=== PATIENT | male | born 1985 | race Caucasian/White ===

== ENCOUNTER 2018-03-20 14:07 | Emergency (ER) | payer OTHER ==
--- NOTE | 2018-03-20 14:19 | CPEKG ---
Heart Rate: 89 RR Interval: 674 P-R Interval: 168 QRSD Interval: 92 QT Interval: 368 QTC Interval: 448 P [place]: 78 QRS [place]: 55 T Wave [place]: 29 EKG Severity - ABNORMAL ECG - EKG Impression: SINUS RHYTHM EKG Impression: RIGHT ATRIAL ABNORMALITY Electronically Signed By: Eber Carias 20-Mar-2018 14:24:17
[2018-03-20] MEDS ORDERED: NS 1,000 ML IV ONE (14:22)
--- NOTE | 2018-03-20 14:24 | EDPHY ---
H & P Stated Complaint: Palpitations Time Seen by Provider: 03/20/18 14:18 HPI/ROS: CHIEF COMPLAINT: Palpitations HISTORY OF PRESENT ILLNESS: Patient is a 32-year-old healthy man who complains of palpitations about hr ago that resolved spontaneously. He had some more about 30 min ago and decided to drive to the ER. No chest pain. He did experience some slight shortness of breath along with them. No fevers. No cough no recent illness. No vomiting. No diaphoresis. No history of anxiety. No stimulant use, no significant caffeine use. REVIEW OF SYSTEMS: Constitutional: denies: chills, fever, recent illness, recent injury EENTM: denies: blurred vision, double vision, nose congestion Respiratory: denies: cough, shortness of breath Cardiac: See HPI denies: chest pain, Gastrointestinal/Abdominal: denies: abdominal pain, diarrhea, nausea, vomiting, blood streaked stools Genitourinary: denies: dysuria, frequency, hematuria, pain Musculoskeletal: denies: joint pain, muscle pain Skin: denies: lesions, rash, jaundice, bruising Neurological: denies: headache, numbness, paresthesia, tingling, dizziness, weakness Hematologic/Lymphatic: denies: blood clots, easy bleeding, easy bruising Immunologic/allergic: denies: HIV/AIDS, transplant EXAM: GENERAL: Well-appearing, well-nourished and in no acute distress. HEAD: Atraumatic, normocephalic. EYES: Pupils equal round and reactive to light, extraocular movements intact, sclera anicteric, conjunctiva are normal. ENT: TMs normal, nares patent, oropharynx clear without exudates. Moist mucous membranes. NECK: Normal range of motion, supple without lymphadenopathy or JVD. LUNGS: Breath sounds clear to auscultation bilaterally and equal. No wheezes rales or rhonchi. HEART: Regular rate and rhythm without murmurs, rubs or gallops. ABDOMEN: Soft, nontender, normoactive bowel sounds. No guarding, no rebound. No masses appreciated. BACK: No CVA tenderness, no spinal tenderness, step-offs or deformities EXTREMITIES: Normal range of motion, no pitting or edema. No clubbing or cyanosis. NEUROLOGICAL: Cranial nerves II through XII grossly intact. Normal speech, normal gait. 5/5 strength, normal movement in all extremities, normal sensation PSYCH: Normal mood, normal affect. SKIN: Warm, dry, normal turgor, no visible rashes or lesions. Source: Patient Exam Limitations: No limitations - Personal History Current Tetanus Diphtheria and Acellular Pertussis (TDAP): Yes - Medical/Surgical History Hx Asthma: No Hx Chronic Respiratory Disease: No Hx Diabetes: No Hx Cardiac Disease: No Hx Renal Disease: No Hx Cirrhosis: No Hx Alcoholism: No Hx HIV/AIDS: No Hx Splenectomy or Spleen Trauma: No Other PMH: T9-T10 FX - Family History Significant Family History: No pertinent family hx - Social History Smoking Status: Never smoked Alcohol Use: None Constitutional: Initial Vital Signs Temperature (C) 36.7 C 03/20/18 14:08 Heart Rate 86 03/20/18 14:08 Respiratory Rate 20 03/20/18 14:08 Blood Pressure 142/94 H 03/20/18 14:08 O2 Sat (%) 96 03/20/18 14:08 O2 Delivery Mode Room Air Allergies/Adverse Reactions: cefaclor [From Ceclor] Allergy (Severe, Verified 06/11/14 08:05) Hives Home Medications: Medication Instructions Recorded No Medications [No Meds] 10/18/13 Amox Tr/K Clav (Augmentin) 500 mg PO Q8 #30 tab 06/11/14 [Augmentin 500/125 MG TAB (*)] Ciprofloxacin/Dexamethasone 4 drops OTIC BID #1 bottle 06/11/14 [Ciprodex] Hydrocodone/APAP 5/325 [[place] 1 - 2 tab PO Q4PRN PRN #15 tab 06/11/14 5/325 (*)] Medical Decision Making - Diagnostics EKG Interpretation: An EKG obtained and was read and documented in trace view. Please see trace view for full reading and report. Sinus rhythm, no acute ischemic changes ED Course/Re-evaluation: The patient is feeling completely better. We discussed his lab and EKG results. He thinks that there may have been some anxiety involved. He declines further workup or observation at this time. I will follow up from follow up with his primary the and possibly for Holter monitoring. He understands and agrees with this plan. Differential Diagnosis: Partial list of the Differential diagnosis considered include but were not limited to; palpitations, arrhythmia, anxiety and although unlikely based on the history and physical exam, I also considered stimulant abuse, dehydration. I discussed these differential diagnoses and the plan with the patient as well as the usual and expected course. The patient understands that the diagnosis is provisional and that in medicine we are not always correct and that further workup is often warranted. Usual and customary warnings were given. All of the patient's questions were answered. The patient was instructed to return to the emergency department should the symptoms at all worsen or return, otherwise to followup with the physician as we discussed. - Data Points Laboratory Results: Laboratory Results 03/20/18 14:25 03/20/18 14:25 Medications Given: Discontinued Medications Sodium Chloride (Ns) 1,000 mls @ 0 mls/hr IV EDNOW ONE; Wide Open PRN Reason: Protocol Stop: 03/20/18 14:23 Last Admin: 03/20/18 14:29 Dose: 1,000 mls Departure - Departure Disposition: Home, Routine, Self-Care Clinical Impression: Palpitations Condition: Good Instructions: Heart Palpitations (ED) Referrals: NONE *PRIMARY CARE P,. [Primary Care Provider] - As per Instructions Jamie Jarrett MD [[facility] Primary Care Provider] - As per Instructions
[2018-03-20 14:31] LABS: PLATELET COUNT 235 10^3/uL (150-400)
[2018-03-20 15:12] VITALS: BP 117/76
== END 2018-03-20 15:12 | disposition home or self-care (01) ==
DX: R00.2 Palpitations (principal); E86.9 Volume depletion, unspecified

== ENCOUNTER 2018-10-18 11:52 | Observation (INO) | payer OTHER ==
--- NOTE | 2018-10-17 21:56 | PDGENHP ---
History and Physical - Chief Complaint RIGHT HIP PAIN - History of Present Illness 1. Bilateral~Femoroacetabular impingement (AMEENA) Mixed type,~with~resultant labral tear 2.~~~Bilateral lower extremity radicular symptoms 3.~~~History of T9-10 fracture ~ HISTORY OF PRESENT ILLNESS: Donis a 32 y.o.~active male~who I have had the pleasure to consult on today. 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 ~Don enjoys cycling, nordic skiing, running, and swimming. Francisco's~bilateral~hip pain~started 2013;~9 months after a skiing accident with fractures of T9-T-10. Nerve pain in feet, and lower lumbar spine pain. Presentation today is of~anterior, posterior, lateral~bilateral~hip pain. ~The hip~does not~wake him~at night and does~click and catch on him. Sitting~can be uncomfortable~for him.~Dondoes~report suffering from lower back pain episodes, he has bilateral lower radicular symptoms, mostly in his feet, which is the biggest source of his pain right now. Donhas~participated in physical therapy (for several months)~and has~tried other conservative measures including~cortisone~hip injection~(Right Hip 80% immediate relief, 1 month of sustained relief; Left diagnostic injection, 0% relief)~, dry needling and massage therapy.~He~has not~received sufficient symptomatic improvement. Donhas~utilized medication for pain management, including NSAID.~Donhas used medication since the pain began. Donunderstands that he~has a hip and pelvis problem which should be researched and wishes to get a better understanding of his~hip status, followed by an establishment of a treatment strategy, hoping he~would be able to get back to his~well being active life. History: Past medical history:~~ None which is relevant~ Relevant familial history:~None which is relevant~ Past surgical history:~ None Donhas never received general anesthesia. I have reviewed, verified and agree with the past medical, surgical, family and social history. Current Medications:~has a current medication list which includes the following prescription(s): ibuprofen. ALLERGIES:~is allergic to ceclor [cefaclor]. Objective: Physical Examination: Donis 6~feet 1~inches tall and weighs 163~Lbs. Donis AAO x3; jaimie~is well- nourished, in NAD. Skin is warm and dry. ~Breathing is non-labored. ~CV with RRR by pulse. Abdomen is soft, NTND. Currently,~he~walks with a normal~gait. Trendelenburg sign is~negative~and proprioception is normal,~both~sides. He~presents with mild~signs of joint laxity. Beightons Score:~2 (knees) Lower spine examination is~positive~for sciatic with SLR.~Range of motion of the spine is normal~for flexion, extension, and rotations, with~associated lumbar back~pain. Strength, Sensation and pulses are~normal -~bilaterally Ankles and knees exams are~normal~and no~mal-alignment is evident. He~has~right~1~cm short leg length discrepancy. Thigh circumference is~symmetric~with no evidence for muscle atrophy~on both~ sides. Hip ROM (degrees): FL ER At 90~hip FL IR At 90~hip FL AB AD EX IR Neutral hip ER Neutral hip R 105 45 10 30 5 5 40 40 L 105 40 10 30 5 5 45 30 Specific hip and pelvis tests: Impingement Test DANG Roll Add. Longus R +++ +++ Negative Negative L +++ +++ Negative Negative Glut. Med ITB R Negative 5/5 strength Negative 5/5 strength L Negative 5/5 strength Negative 5/5 strength Squeeze test measured~normal Bony Symphysis pubis is~pain free~to touch while concentric activity of the rectus abdominis, does not~produce pain at its insertion. Posterior joint: left hip Ilio Psos specific tests~unable to assess due to back pain. Greater trochanteric burse is~painful~on both hips. Piriformis tests: FAIR is~positive,~with~local signs of neuritis related to sciatic nerve. RIGHT HIP SIJs examination is~normal~with normal~DANG in relation and local tenderness. Hamstrings tests are~negative~functional contraction and negative~tendinopathy both hips. On a daily basis, the following percentages reflectArtemio's overall total pain: Deep hip:~90% GT:~10% Imaging: Radiology studies which I have personally reviewed, analyzed and measured are below: XR: AP of the hip and pelvis: Performed in a~suboptimal~technique Coccyx~is at the level of the~pubic symphysis Standing [place] Lines are~preserved. Minimal~Pathological signs are seen in the Symphysis Pubis. Minimal~Pathological signs are seen at the Ischial tuberosity. ~ Specific measurements show: NSA~ LCE Sourcil~Angle Sharp's angle Lat. Cam Lat. Pincer C.Over~sign Head~Coverage % ATDmm R N 46 -4 37 + + - N N L N 44 -6 47 + + - N N Pos. wall sign ISS NAD ~~Dysplasia Comments R Negative Negative 12.4~mm Negative L Negative Negative 14.4~mm Negative Sclerosis Sup. Lat. OA Cysts Joint Space-WBZ Joint Space-Medial R Negative Negative Negative 3.9~mm 5.0~mm L Negative Negative Negative 4.2~mm 3.9~mm X Table lateral: Anterior cam lesion is~seen~on both hips. Alpha Angle: ~ Right~69~dergrees Left~65~degrees Impression and plan: Rosie Ochoais a 32 y.o.~active male~suffering from symptomatic Bilateral~hip pain due to Femoroacetabular impingement (AMEENA)~Mixed type,~with~resultant labral tear ~causing significant disability to him~and altering his~sport and life activities. Physical examination, imaging, and~his~story correspond with the diagnosis mentioned above. I explained that femoroacetabular impingement (AMEENA) arises due to a bony or soft tissue conflict between the femur (ball) and acetabulum (socket) caused by an abnormality in the shape of the hip joint. Over time, repetitive impingement can result in damage to the labrum and adjacent surface cartilage within the socket, ultimately giving rise to progressive osteoarthritis of the hip. I explained that although a labral tear can be a source of pain, it is rarely the root of the problem and typically occurs secondary to an underlying abnormality in the shape and mechanics of the hip joint. ~ I reviewed conservative treatment options for AMEENA including activity modification to avoid positions of impingement, physical therapy, non-steroidal anti-inflammatory medications, and various injections (corticosteroid and PRP) aimed at reducing inflammation in the hip joint or/and preventing dynamic impingement. PRP injections may promote healing and reduce symptoms in certain cases but it will not repair chronically damaged tissue. Although these measures may help to buy time and reduce current level of symptoms, they are not a definitive solution to the problem given the underlying abnormality in the shape of the hip joint. Patients who have failed conservative management and continue to experience symptoms are candidates for hip arthroscopy, a minimally invasive surgery that can definitively address the underlying problem. Hip arthroscopy typically includes treating the labrum with either repair or reconstruction of the torn labrum; as well as addressing the underlying abnormalities by restoring the normal shape to the hip joint. ~If the cartilage is damaged a Microfracture surgical procedure may also be necessary to help stimulate the growth of fibrocartilage. ~If a patient requires a labral reconstruction or a Microfracture, the initial rehabilitation from the surgery may take longer, but the long-term results are typically favorable. I reviewed the technical aspects of hip arthroscopy including risks, benefits, and expected course of recovery.~Francisco~understands that hip arthroscopy is a minimally invasive outpatient procedure carried out through small incisions on the outer aspect of the hip joint. During surgery, the labral tear will be identified and either repaired or reconstructed~using bone anchors and suture material. Additionally, any excessive bone will be removed with a high-speed phong to reshape the hip joint and restore normal anatomy. Risks include infection, bleeding, injury to nearby nerves or vessels, stiffness, persistent pain, instability, venous thromboembolic disease, and traction related complications including temporary foot numbness. Rarely, revision surgery may be required to address these problems. Overall recovery takes approximately 4~ 8~months depending on the extent of damage and degree of repair. In the event that the labral tissue quality is inadequate for successful repair and healing,~Francisco~understands that a labral reconstruction will be performed. This procedure entails placing a cadaver tissue graft within the hip joint and stabilizing it with bone anchors to build a new labrum. The overall recovery time for labral reconstruction is similar to that of labral repair, although the surgical procedure takes longer to perform. Since he reports that about 80% of his pain originates from his feet, we would like to have him address this issue prior to having hip arthroscopy. ~He will follow up with Dr. Landry. Donwill review the info presented. We will order a CT scan if and when Francisco decides to move forward with surgical intervention. Francisco~will contact us if he~wishes to pursue further treatment in the future. Donis happy with this plan. I have also supplied~him~with handouts, outlining the expected surgical treatment and rehab involved. I wish~Donall the best, ~~ Marko Ewing, PAC History Information - Allergies/Home Medication List Allergies/Adverse Reactions: cefaclor [From Ceclor] Allergy (Severe, Verified 06/11/14 08:05) Hives Home Medications: Herbals/Supplements -Info Only DAILY 10/08/18 [Last Taken Unknown] Ibuprofen DAILY 10/08/18 [Last Taken Unknown] I have personally reviewed and updated: medical history - Social History Smoking Status: Never smoked Review of Systems Review of Systems: Physical Exam Physical Exam:
[~2018-10-18 11:52] MED LIST: BUPIVACAINE/EPI 0.25% 30 ML SDV ONE; EPINEPHrine 30 MG/30 ML MDV (0.1 MG/0.1 ML) ONE; VANCOMYCIN 1.25 GM in NS 250 ML IV ONE; VANCOMYCIN PHARMACY TO DOSE MISC ONE
[2018-10-18] MEDS ORDERED: LR 1,000 ML IV ONE (12:50)
[2018-10-18] MEDS ORDERED: LIDOCAINE 1% 2 ML INJ ID PRN (12:50)
[2018-10-18] MEDS ORDERED: PREGABALIN 150 MG CAP PO ONE (12:50)
[2018-10-18] MEDS ORDERED: ACETAMINOPHEN 500 MG TAB PO ONE (12:50)
[2018-10-18] MEDS ORDERED: CLINDAMYCIN 900 MG/DEXTROSE 50 ML IV ONE (15:29)
--- NOTE | 2018-10-18 15:29 | PDANEPAE ---
ANE History of Present Illness right hip dysplasia here for right hip scope ANE Past Medical History - Cardiovascular History Hx Hypertension: No Hx Arrhythmias: No Hx Chest Pain: No Hx Coronary Artery / Peripheral Vascular Disease: No Hx CHF / Valvular Disease: No Hx Palpitations: Yes Cardiovascular History Comment: 03/2018 RELATED TO ANXIETY - Pulmonary History Hx COPD: No Hx Asthma/Reactive Airway Disease: No Hx Recent Upper Respiratory Infection: No Hx Oxygen in Use at Home: No Hx Sleep Apnea: No Sleep Apnea Screening Result - Last Documented: Negative - Neurologic History Hx Cerebrovascular Accident: No Hx Seizures: No Hx Dementia: No - Endocrine History Hx Diabetes: No - Renal History Hx Renal Disorders: No - Liver History Hx Hepatic Disorders: No - Neurological & Psychiatric Hx Hx Neurological and Psychiatric Disorders: No - Cancer History Hx Cancer: No - Congenital Disorder History Hx Congenital Disorders: No - GI History Hx Gastrointestinal Disorders: No - Other Health History Other Health History: HAS TORN RT LABRUM. ACETABULAR IMPINGEMENT - Chronic Pain History Chronic Pain: Yes (RT HIP) - Surgical History Prior Surgeries: COLONOSCOPY. T&T ANE Review of Systems Review of Systems: - Exercise capacity METS (RN): 5 METS ANE Patient History - Allergies Allergies/Adverse Reactions: cefaclor [From Ceclor] Allergy (Severe, Verified 06/11/14 08:05) Hives vancomycin Allergy (Verified 10/18/18 15:01) Flushing & Hives - Home Medications Home Medications: Herbals/Supplements -Info Only DAILY 10/08/18 [Last Taken 10/11/18] Ibuprofen DAILY 10/08/18 [Last Taken 09/27/18] [place]-3 10/18/18 [Last Taken 10/11/18] - NPO status NPO Since - Liquids (Date): 10/18/18 NPO Since - Liquids (Time): 10:00 NPO Since - Solids (Date): 10/17/18 NPO Since - Solids (Time): 21:00 - Smoking Hx Smoking Status: Never smoked - Family Anes Hx Family Hx Anesthesia Complications: NEG ANE Labs/Vital Signs - Vital Signs Blood Pressure: 133/82 Heart Rate: 67 Respiratory Rate: 20 O2 Sat (%): 97 Height: 185.42 cm Weight: 76.657 kg ANE Physical Exam - Airway Neck exam: FROM Mallampati Score: Class 1 Mouth exam: normal dental/mouth exam - Pulmonary Pulmonary: no respiratory distress - Cardiovascular Cardiovascular: regular rate and rhythym - ASA Status ASA Status: II ANE Anesthesia Plan Anesthesia Plan: general endotracheal anesthesia (Called to pre-op to evaluate a rash and hives and facial flushing from vancomycin infusion. turned off for 10 min, improved. Re-started at 1/2 rate and reaction worsened for 30 min. Infusion stopped. Called pharmacy and ok to use clindamycin. Lengthly discussion with family and patient and decision to proceed made with new antibiotic) Total IV Anesthesia: No
[2018-10-18] MEDS ORDERED: MIDAZOLAM 2 MG/2 ML VIAL IVP ONE (15:30)
[2018-10-18] MEDS ORDERED: ROCURONIUM 50 MG/5 ML VIAL ONE (15:36)
[2018-10-18] MEDS ORDERED: LIDOCAINE 2% 5 ML SDV ONE (15:36)
[2018-10-18] MEDS ORDERED: LIDOCAINE HCL 160 MG/4 ML LTA KIT TP ONE (15:37)
[2018-10-18] MEDS ORDERED: PROPOFOL 200 MG/20 ML VIAL ONE (15:37)
[2018-10-18] MEDS ORDERED: fentaNYL 100 MCG/2 ML INJ ONE ×3 (15:37→20:14)
[2018-10-18] MEDS ORDERED: ONDANSETRON 4 MG/2 ML VIAL ONE (19:38)
--- NOTE | 2018-10-18 19:52 | POSTOPPROG ---
Post Op Note Date of Operation: 10/18/18 Surgeon: Luis Manuel Dudley Homebound Teacher: Deena Evangelista Anesthesia: GET(General Endotracheal) Pre-op Diagnosis: R hip AMEENA mixed type Post-op Diagnosis: Same Procedure: R hip scope, labral repair, cam/pincer resection, capsular repair Inf/Abcess present in the surg proc area at time of surgery?: No EBL: Minimal
[2018-10-18] MEDS ORDERED: ONDANSETRON 4 MG/2 ML VIAL IVP PRN ×2 (19:53→22:25)
[2018-10-18] MEDS ORDERED: NALOXONE HCL 0.4 MG/ML INJ IVP PRN (19:53)
[2018-10-18] MEDS ORDERED: oxyCODONE IR 5 MG TAB PO PRN ×2 (19:53→22:25)
[2018-10-18] MEDS ORDERED: PROMETHAZINE HCL 25 MG/ML INJ IVP PRN ×2 (19:53→22:25)
[2018-10-18] MEDS ORDERED: ACETAMINOPHEN 500 MG TAB PO PRN (19:53)
[2018-10-18] MEDS ORDERED: DIAZEPAM 5 MG/ML 1 ML SYR IVP PRN (19:53)
[2018-10-18] MEDS ORDERED: HYDROCODONE/APAP 5/325 TAB PO PRN (19:53)
--- NOTE | 2018-10-18 19:55 | POSTANESTH ---
Post Anesthetic Evaluation Cardiovascular Status: Normal, Stable, Similar to Pre-Op Cond Respiratory Status: Similar to Pre-op Cond., Requires Airway Assist Level of Consciousness/Mental Status: Mildly Sleepy, Arousable, Moderately Sleepy Pain Control: Adequate, Prn Tx Ordered Nausea/Vomiting Control: Adequate, Prn Tx Ordered Complications Possibly Related to Anesthesia: None Noted
[2018-10-18] MEDS ORDERED: MEPERIDINE 25 MG/0.5 ML AMP IVP PRN (20:02)
[2018-10-18] MEDS ORDERED: MEPERIDINE 25 MG/0.5 ML AMP ONE (20:03)
[2018-10-18] MEDS ORDERED: HYDROmorphONE/DILAUDID 2 MG/ML INJ ONE (20:14)
[2018-10-18] MEDS: HYDROmorphONE/DILAUDID 2 MG/ML INJ IVP PRN ×2 (20:17→20:55)
[2018-10-18] MEDS: fentaNYL 100 MCG/2 ML INJ IVP PRN ×2 (20:17→20:54)
[2018-10-18] MEDS ORDERED: oxyCODONE IR 5 MG TAB ONE (21:04)
[2018-10-18] MEDS ORDERED: ACETAMINOPHEN 500 MG TAB ONE (21:04)
[2018-10-18] MEDS ORDERED: ONDANSETRON DISINTEGRATING 4 MG TAB PO PRN (22:25)
[2018-10-18] MEDS ORDERED: HYDROmorphONE/DILAUDID 1 MG/ML INJ IVP PRN (22:25)
[2018-10-19 08:07] VITALS: BP 107/62
--- NOTE | 2018-10-19 08:41 | ASMTLACE ---
LACE Length of stay for Answers: Less than 1 day current admission Comorbidities - select Answers: Opioid dependence all that apply / Chronic pain # of Emergency department Answers: 0 visits in the last 6 months Social determinants Answers: Mental health diagnosis (anxiety, depression, pers onality disorders, etc.) Score: 7 Date Signed: 10/19/2018 08:41 AM Electronically Signed By:Edelmira Crandall RN
--- NOTE | 2018-10-19 08:45 | ASMTCMCOM ---
CM Note CM Note Notes: Patient chart reviewed. Patient underwent hip arthroscopic surgery yesterday and is now medically cleared for discharge to home. No needs identified. CM available should needs arise. Plan: DC to home independently. Date Signed: 10/19/2018 08:45 AM Electronically Signed By:Edelmira Crandall RN
== END 2018-10-19 14:15 | disposition home or self-care (01) ==
LOC: FSGY 11:52 → F3E 22:25 → F1N 23:57
PROVIDERS: ADMIT Physician Assistant; ATTEND Orthopaedic Surgery Sports Medicine
PROC: 0SQ94ZZ Repair Right Hip Joint, Percutaneous Endoscopic Approach (ICD-10-PCS; principal; 2018-10-18 13:15)
PROC: 0SB94ZZ Excision of Right Hip Joint, Percutaneous Endoscopic Approach (ICD-10-PCS; principal; 2018-10-18 13:15)
PROC: BQ101ZZ Fluoroscopy of Right Hip using Low Osmolar Contrast (ICD-10-PCS; principal; 2018-10-18 13:15)
DX: G89.18 Other acute postprocedural pain (principal); M25.851 Other specified joint disorders, right hip; M65.9 Synovitis and tenosynovitis, unspecified; M21.751 Unequal limb length (acquired), right femur
CPT/HCPCS: 29914; 29916; 76001; 97161; G0378; C1713; J0171; J1170; J2175; J2250; J2405; J2704; J3010; J3370